=== PATIENT | male | born 1975 | race Caucasian/White ===

== ENCOUNTER 2016-09-19 12:26 | Emergency (ER) | payer BC, MEDICAID, OTHER ==
[2016-09-19] MEDS ORDERED: LORAZEPAM 2 MG/ML 1ML SDV ONE (13:02)
[2016-09-19] MEDS ORDERED: ONDANSETRON 4 MG/2ML 2 ML VIAL ONE (13:02)
[2016-09-19 13:08] LABS: ABSOLUTE NEUTROPHIL COUNT 2.7 K/mm3 (1.8-7.7); BASO # 0.1 K/mm3 (0.0-0.2); BASO % 1.4 % (0.2-1.0); EOS # 0.3 (0.0-0.5); HEMATOCRIT 45.5 % (32.0-52.0); IMM NEUT% 0.1 % (0-1); LYMPH # 3.8 (1.0-4.8); LYMPH % 49.6 % (15-45); MEAN CELL VOLUME 92.1 fl (80.0-94.0); MEAN CORPUSCULAR HEMOGLOBIN 30.4 pg (27.0-31.0); MEAN PLATELET VOLUME 8.4 fl (7.4-10.4); MONO # 0.8 (0.0-0.8); MONO % 10.1 % (4-12); NEUT % 34.8 % (43-75); PLATELET COUNT 223 K/mm3 (130-400)
[2016-09-19] MEDS ORDERED: MULTIVITAMINS 10 ML, THIAMINE HCL 100 MG, FOLIC ACID 2 MG, MAGNESIUM SULFATE 1 G/2 ML 2... IV ONE ×5 (13:15)
[2016-09-19 13:22] LABS: ALB/GLOB RATIO 1.4 (>1.0); ALBUMIN 4.8 gm/dL (3.5-5.7); CALCIUM 9.2 mg/dL (8.6-10.3)
[2016-09-19 14:10] LABS: INR 0.96; PROTHROMBIN TIME 10.1 SECONDS (9.3-11.4)
== END 2016-09-19 14:22 | disposition home or self-care (01) ==
LOC: ED 12:26
DX: F10.229 Alcohol dependence with intoxication, unspecified (principal); I10 Essential (primary) hypertension; R25.1 Tremor, unspecified; E66.9 Obesity, unspecified; Y90.8 Blood alcohol level of 240 mg/100 ml or more
CPT/HCPCS: 83690; 85025; 80053; 80307; 85610; 96375 ×2; 99283 ×2; 96365; J2060; J3475; J3411; J2405; J7030

== ENCOUNTER 2016-10-11 01:14 | Emergency (ER) | payer MEDICAID, OTHER ==
[2016-10-11] MEDS ORDERED: KETOROLAC TROMETHAMINE 60 MG/2 ML VIAL ONE (02:13)
== END 2016-10-11 02:37 | disposition home or self-care (01) ==
LOC: ED 01:14
DX: M76.9 Unspecified enthesopathy, lower limb, excluding foot (principal); M25.561 Pain in right knee; F10.20 Alcohol dependence, uncomplicated; X50.0XXA Overexertion from strenuous movement or load, initial encounter; Y93.H9 Activity, other involving exterior property and land maintenance, building and construction; Y92.007 Garden or yard of unspecified non-institutional (private) residence as the place of occurrence of the external cause
CPT/HCPCS: 99283 ×2; 96372; J1885